=== PATIENT | female | born 1970 ===

== ENCOUNTER 2017-08-09 04:27 | Emergency (ER) | payer OTHER ==
--- NOTE | 2017-08-09 04:51 | ED PDOC ---
Arrival/HPI - General Chief Complaint: Substance Abuse Time Seen by Provider: 08/09/17 04:40 EM Caveat: Acuity of Condition - History of Present Illness Narrative History of Present Illness (Text): 08/09/17 04:50 46 year old female, with no significant past medical history, presents to the emergency department by EMS and police, for taking unknown quantity of Unisom pills. As per , patient was depressed about health related problems with her mother and stated she wanted to kill herself. She also had 4 beers. HPI and ROS limited due to patient's acuity of condition. Time/Duration: 1/2 hour Symptom Onset: Sudden Symptom Course: Unchanged Context: Home Past Medical History - Psychiatric Hx Substance Use: No Family/Social History Smoking Status: Never Smoked Hx Alcohol Use: Yes Hx Substance Use: No Allergies/Home Meds Allergies/Adverse Reactions: Allergies No Known Allergies Allergy (Verified 08/09/17 04:31) Home Medications: Home Meds Medication Instructions Recorded Confirmed No Known Home Med 08/09/17 08/09/17 Physical Exam Vital Signs Temp Pulse Resp BP Pulse Ox 08/09/17 05:43 97.4 F L 90 15 104/71 99 08/09/17 04:43 97.3 F L 93 H 19 136/93 H 95 Medical Decision Making ED Course and Treatment: 08/09/17 04:51 Impression: 46 year old female presents for taking unknown quantity of Unisom pills with drinking alcohol. On PE patient is lethargic but arousable to physical stimuli. Plan: -- Labs -- Chest X-ray -- HCG, Qualit urine -- Urinalysis -- Reassess and disposition Progress Notes: 08/09/17 05:52 CXR Impression: As read by IRVING bearden. . - Lab Interpretations Lab Results: 08/09/17 05:20 08/09/17 05:20 Lab Results 08/09/17 05:20: Urine HCG, Qual Negative 08/09/17 05:20: Alcohol, Quantitative 243 H 08/09/17 05:20: Salicylates < 1 L, Acetaminophen < 10.0 L 08/09/17 05:20: Sodium 146, Potassium 3.8, Chloride 106, Carbon Dioxide 23, Anion Gap 20, BUN 8, Creatinine 0.7, Est GFR ( Amer) > 60, Est GFR (Non- Af Amer) > 60, Random Glucose 101, Calcium 9.6, Total Bilirubin 0.5, AST 46 H, ALT 37, Alkaline Phosphatase 84, Total Protein 8.8 H, Albumin 4.7, Globulin 4.1 , Albumin/Globulin Ratio 1.1 08/09/17 05:20: Urine Color Colorless, Urine Appearance Clear, Urine pH 6.0, Ur Specific [place] <= 1.005, Urine Protein Negative, Urine Glucose (UA) Negative, Urine Ketones Negative, Urine Blood Negative, Urine Nitrate Negative, Urine Bilirubin Negative, Urine Urobilinogen 0.2, Ur Leukocyte Esterase Negative 08/09/17 05:20: WBC 7.5, RBC 4.73, Hgb 15.2, Hct 45.4, MCV 96.0, MCH 32.1, MCHC 33.5, RDW 14.2, Plt Count 297, MPV 10.6, Gran % 56.6, Lymph % (Auto) 37.6 H, [place] % (Auto) 4.9, Eos % (Auto) 0.8 L, Baso % (Auto) 0.1, Gran # 4.23, Lymph # 2.8, [place] # 0.4, Eos # 0.1, Baso # 0.01 I have reviewed the lab results: Yes - RAD Interpretation Radiology Orders: 08/09/17 04:50 CHEST PORTABLE [RAD] Stat - Scribe Statement The provider has reviewed the documentation as recorded by the Scribe Shannan Hendrix Provider Scribe Attestation: All medical record entries made by the Scribe were at my direction and personally dictated by me. I have reviewed the chart and agree that the record accurately reflects my personal performance of the history, physical exam, medical decision making, and the department course for this patient. I have also personally directed, reviewed, and agree with the discharge instructions and disposition. Disposition/Present on Arrival - Present on Arrival History of DVT/PE: No History of Uncontrolled Diabetes: No Urinary Catheter: No History of Decub. Ulcer: No History Surgical Site Infection Following: None - Disposition Forms: [employer] (Hebrew)
[2017-08-09 05:41] LABS: ACETAMINOPHEN < 10.0 ug/ml (10.0-20.0); BASO # 0.01 K/mm3 (0.0-2.0); BASO % 0.1 % (0.0-3.0); EOS # 0.1 (0.0-0.7); EOS % 0.8 % (1.5-5.0); GRAN # 4.23 (1.4-6.5); GRAN % 56.6 % (50.0-68.0); HEMOGLOBIN 15.2 g/dL (12.0-16.0); LYMPH # 2.8 (1.2-3.4); LYMPH % 37.6 % (22.0-35.0); MEAN CORPUSCULAR HEMOGLOBIN 32.1 pg (25.0-35.0); MEAN CORPUSCULAR HGB CONC 33.5 g/dl (31.0-37.0); MEAN PLATELET VOLUME 10.6 fl (7.0-11.0); MONO # 0.4 (0.1-0.6); MONO % 4.9 % (1.0-6.0); RBC 4.73 10^6/uL (3.5-6.1); RED CELL DISTRIBUTION WIDTH 14.2 % (11.5-14.5); SALICYLATE < 1 mg/dL (2.0-20.0); WHITE BLOOD COUNT 7.5 10^3/ul (4.5-11.0)
[2017-08-09 05:42] LABS: CALCIUM 9.6 mg/dL (8.4-10.5); GFR AFRICAN-AMERICAN > 60; GFR NON-AFRICAN AMERICAN > 60
[2017-08-09 05:43] LABS: URINE BILIRUBIN NEGATIVE (NEGATIVE); URINE BLOOD NEGATIVE (NEGATIVE); URINE GLUCOSE (UA) NEGATIVE (NEGATIVE); URINE LEUKOCYTE ESTERASE NEGATIVE Leu/uL (NEGATIVE); URINE NITRATE NEGATIVE (NEGATIVE); URINE PROTEIN NEGATIVE mg/dL (<30 mg/dL); URINE UROBILINOGEN 0.2 E.U./dL (<1 E.U./dL)
[2017-08-09 05:44] LABS: URINE APPEARANCE CLEAR (CLEAR); URINE COLOR COLORLESS (YELLOW)
[2017-08-09 05:46] LABS: ALB/GLOB RATIO 1.1 (1.1-1.8); ALBUMIN 4.7 g/dL (3.0-4.8); ALT/SGPT 37 U/L (7-56); AST/SGOT 46 U/L (14-36); BLOOD UREA NITROGEN 8 mg/dL (7-21)
[2017-08-09 07:55] VITALS: TEMP 98
--- NOTE | 2017-08-09 08:05 | ED PDOC ---
Physical Exam Vital Signs Reviewed: Yes Vital Signs Temp Pulse Resp BP Pulse Ox 08/09/17 14:07 98 F 108 H 18 142/96 H 100 08/09/17 07:54 98 F 91 H 20 112/65 97 08/09/17 06:51 97.4 F L 210 H 20 128/69 98 08/09/17 05:43 97.4 F L 90 15 104/71 99 08/09/17 04:43 97.3 F L 93 H 19 136/93 H 95 Temperature: Afebrile Blood Pressure: Hypertensive Pulse: Regular Respiratory Rate: Normal Appearance: Positive for: Well-Appearing Pain Distress: None Mental Status: Positive for: Alert and Oriented X 3 - Systems Exam Head: Present: Atraumatic, Normocephalic Pupils: Present: PERRL Extroacular Muscles: Present: EOMI Conjunctiva: Present: Normal Mouth: Present: Moist Mucous Membranes Neck: Present: Normal Range of Motion Respiratory/Chest: Present: Clear to Auscultation, Good Air Exchange. No: Respiratory Distress, Accessory Muscle Use Cardiovascular: Present: Regular Rate and Rhythm, Normal S1, S2. No: Murmurs Abdomen: Present: Normal Bowel Sounds. No: Tenderness, Distention, Peritoneal Signs Back: Present: Normal Inspection Upper Extremity: Present: Normal Inspection. No: Cyanosis, Edema Lower Extremity: Present: Normal Inspection. No: Edema Neurological: Present: GCS=15, CN II-XII Intact, Speech Normal, Motor Func Grossly Intact, Normal Sensory Function, Normal Cerebellar Funct, Norm Deep Tendon Reflexes, Gait Normal, Memory Normal, Normal 2Pt Descrimination Skin: Present: Warm, Dry, Normal Color. No: Rashes Psychiatric: Present: Alert, Oriented x 3, Normal Insight, Normal Concentration Medical Decision Making ED Course and Treatment: 08/09/17 08:04 Case signed out to me by Dr. Montalvo. Pending sobriety and psych evaluation because of possible SI. 08/09/17 09:26 [place] [facility] control [facility] [phone] Chaya Merrill advise monitoring for antichloinergic symptoms , repeat of lft's, urine drug screen, one more repeated ekg. Pt is basically medically cleared at this point in time. 08/09/17 15:04 pt is medically cleared with labs remainining normal . Pt nw admits to drinking with her on a night out, and then intoxicated she misunderstood her regular unisom dosing given her insomnia, she took 2 and then sometime later another 3 when she felt that the medicines weren't taking effect quickly enough. She and her emphatically denied any suicidality/suicidal statements nor suicidal intention. - Lab Interpretations Lab Results: 08/09/17 05:20 08/09/17 13:40 Lab Results 08/09/17 13:40: Sodium 145, Potassium 4.5, Chloride 109 H, Carbon Dioxide 24, Anion Gap 17, BUN 9, Creatinine 0.8, Est GFR ( Amer) > 60, Est GFR (Non- Af Amer) > 60, Random Glucose 86, Calcium 9.7, Total Bilirubin 0.4, AST 29, ALT 38, Alkaline Phosphatase 75, Total Protein 8.0, Albumin 4.4, Globulin 3.6, Albumin/Globulin Ratio 1.2 08/09/17 05:20: Urine HCG, Qual Negative 08/09/17 05:20: Alcohol, Quantitative 243 H 08/09/17 05:20: Salicylates < 1 L, Acetaminophen < 10.0 L 08/09/17 05:20: Sodium 146, Potassium 3.8, Chloride 106, Carbon Dioxide 23, Anion Gap 20, BUN 8, Creatinine 0.7, Est GFR ( Amer) > 60, Est GFR (Non- Af Amer) > 60, Random Glucose 101, Calcium 9.6, Total Bilirubin 0.5, AST 46 H, ALT 37, Alkaline Phosphatase 84, Total Protein 8.8 H, Albumin 4.7, Globulin 4.1 , Albumin/Globulin Ratio 1.1 08/09/17 05:20: Urine Color Colorless, Urine Appearance Clear, Urine pH 6.0, Ur Specific [place] <= 1.005, Urine Protein Negative, Urine Glucose (UA) Negative, Urine Ketones Negative, Urine Blood Negative, Urine Nitrate Negative, Urine Bilirubin Negative, Urine Urobilinogen 0.2, Ur Leukocyte Esterase Negative 08/09/17 05:20: WBC 7.5, RBC 4.73, Hgb 15.2, Hct 45.4, MCV 96.0, MCH 32.1, MCHC 33.5, RDW 14.2, Plt Count 297, MPV 10.6, Gran % 56.6, Lymph % (Auto) 37.6 H, [place] % (Auto) 4.9, Eos % (Auto) 0.8 L, Baso % (Auto) 0.1, Gran # 4.23, Lymph # 2.8, [place] # 0.4, Eos # 0.1, Baso # 0.01 I have reviewed the lab results: Yes - RAD Interpretation Radiology Orders: 08/09/17 04:50 CHEST PORTABLE [RAD] Stat - Scribe Statement The provider has reviewed the documentation as recorded by the Corin Mora Provider Scribe Attestation: All medical record entries made by the Scribe were at my direction and personally dictated by me. I have reviewed the chart and agree that the record accurately reflects my personal performance of the history, physical exam, medical decision making, and the department course for this patient. I have also personally directed, reviewed, and agree with the discharge instructions and disposition. Disposition/Present on Arrival - Present on Arrival Any Indicators Present on Arrival: No History of DVT/PE: No History of Uncontrolled Diabetes: No Urinary Catheter: No History of Decub. Ulcer: No History Surgical Site Infection Following: None - Disposition Have Diagnosis and Disposition been Completed?: Yes Diagnosis: Overdose, Alcohol intoxication Disposition: HOME/ ROUTINE Disposition Time: 15:08 Patient Plan: Discharge Condition: FAIR Discharge Instructions (ExitCare): Insomnia (ED) Print Language: PORTUGUESE Additional Instructions: Beware of combining medications with cumulative sedating effect, as you could end up in a therapeutic misadventure or overdose as seen today. Always follow the advised doing of your medication to avoid untoward side effects. l Forms: [employer] (Hong Konger)
--- NOTE | 2017-08-09 08:08 | RAD ---
HISTORY: overdose COMPARISON: No prior. FINDINGS: LUNGS: No active pulmonary disease. PLEURA: No significant pleural effusion identified, no pneumothorax apparent. CARDIOVASCULAR: Normal. OSSEOUS STRUCTURES: No significant abnormalities. VISUALIZED UPPER ABDOMEN: Normal. OTHER FINDINGS: None. IMPRESSION: No active disease.
--- NOTE | 2017-08-09 11:14 | CARD ---
APPROVED REPORT EKG Measurement Heart [id number] <Conclusion> Normal sinus rhythm Minimal voltage criteria for LVH PRWP NSSTW changes Prolonged QTc
[2017-08-09 14:08] VITALS: O2SAT 100
[2017-08-09 14:20] LABS: ALB/GLOB RATIO 1.2 (1.1-1.8); ALBUMIN 4.4 g/dL (3.0-4.8); ALT/SGPT 38 U/L (7-56); AST/SGOT 29 U/L (14-36); BLOOD UREA NITROGEN 9 mg/dL (7-21); CALCIUM 9.7 mg/dL (8.4-10.5); GFR AFRICAN-AMERICAN > 60; GFR NON-AFRICAN AMERICAN > 60
[2017-08-09 15:07] VITALS: BP 118/71; PULSE 75; RESP 19
== END 2017-08-09 15:24 | disposition home or self-care (01) ==
LOC: ED 04:27
DX: F10.129 Alcohol abuse with intoxication, unspecified (principal); Y90.8 Blood alcohol level of 240 mg/100 ml or more; T45.0X2A Poisoning by antiallergic and antiemetic drugs, intentional self-harm, initial encounter; Y92.009 Unspecified place in unspecified non-institutional (private) residence as the place of occurrence of the external cause